=== PATIENT | female | born 1990 | race Caucasian/White ===

== ENCOUNTER 2021-08-08 11:36 | Emergency (ER) | payer MEDICAID ==
[~2021-08-08] VITALS: Ht 152.4 cm; Wt 95.3 kg
[2021-08-08 12:10] VITALS: BP_SYST 93
--- NOTE | 2021-08-08 12:18 | NUR ---
Patient to ER bed 7 to gown for evaluation. Side rails up. Report given to Jo WILKINS.
--- NOTE | 2021-08-08 12:25 | NUR ---
PT CAME IN FROM HOME C/O SORE THROAT SINCE YESTERDAY WITH SWOLLEN TONSILS. DENIES FEVERS OR CHILLS. PT IS AMBULATORY, [id number], VSS
--- NOTE | 2021-08-08 13:05 | NUR ---
ER DR. CANDELARIO AT THE BEDSIDE EXAMINING PT
[2021-08-08] MEDS ORDERED: DECADRON 4 MG TABLET PO ONE (13:15)
--- NOTE | 2021-08-08 13:30 | NUR ---
SWABS DONE AND SENT TO LAB
[2021-08-08 14:11] LABS: STREPTOCOCCUS A SCREEN (RAPID) NEGATIVE (NEGATIVE)
[2021-08-08] MEDS ORDERED: IBUP-1969 PO (14:18)
[2021-08-08 14:53] VITALS: BP_SYST 93
--- NOTE | 2021-08-08 14:54 | NUR ---
Patient given written and verbal discharge instructions and verbalizes understanding. ER MD discussed with patient the results and treatment provided. Patient in stable condition. ID arm band removed. Rx of IBUPROFEN given. Patient educated on pain management and to follow up with PMD. Pain Scale 0/10. Opportunity for questions provided and answered. Medication side effect fact sheet provided.
== END 2021-08-08 14:54 | disposition home or self-care (01) ==
LOC: SED 11:36
DX: J03.90 Acute tonsillitis, unspecified (principal); B34.9 Viral infection, unspecified; R05.9 Cough, unspecified; Z20.822 Contact with and (suspected) exposure to COVID-19
CPT/HCPCS: 36415; 86403; 87081; 87426; 87804 ×2; 99283; J8540

== ENCOUNTER 2022-05-16 20:01 | Emergency (ER) | payer MEDICAID ==
[~2022-05-16] VITALS: Ht 152.4 cm; Wt 91.6 kg
[~2022-05-16 20:01] MED LIST: IBUP-1969 PO
[2022-05-16 20:10] VITALS: BP_SYST 133
== END 2022-05-17 00:11 | disposition left against medical advice (07) ==
LOC: SED 20:01
DX: J02.9 Acute pharyngitis, unspecified (principal); R05.9 Cough, unspecified; R09.81 Nasal congestion; Z53.21 Procedure and treatment not carried out due to patient leaving prior to being seen by health care provider
CPT/HCPCS: 99281

== ENCOUNTER 2022-08-19 15:23 | Emergency (ER) | payer MEDICAID ==
[~2022-08-19] VITALS: Ht 152.4 cm; Wt 90.7 kg
[2022-08-19 15:24] VITALS: BP_SYST 114
[2022-08-19 16:25] LABS: STREPTOCOCCUS A SCREEN (RAPID) NEGATIVE (NEGATIVE)
[2022-08-19 16:29] LABS: MONOTEST NEGATIVE (NEGATIVE)
[2022-08-19] MEDS ORDERED: IBUP-1969 PO (16:36)
[2022-08-19] MEDS ORDERED: PSEU30TA36 PO (16:36)
[2022-08-19 16:40] VITALS: BP_SYST 111
== END 2022-08-19 16:40 | disposition home or self-care (01) ==
LOC: SED 15:23
DX: J02.9 Acute pharyngitis, unspecified (principal); R51.9 Headache, unspecified; Z79.899 Other long term (current) drug therapy; Z20.822 Contact with and (suspected) exposure to COVID-19
CPT/HCPCS: 36415; 86308-TC; 86403; 87081; 99283

== ENCOUNTER 2023-03-04 16:45 | Emergency (ER) | payer MEDICAID ==
[~2023-03-04] VITALS: Ht 152.4 cm; Wt 89.4 kg
[~2023-03-04 16:45] MED LIST changes: +PSEU30TA36 PO
[2023-03-04 17:16] VITALS: BP_SYST 122; PULSE 95; RESP 15; TEMP 97.7; O2SAT 98
[2023-03-04 18:00] LABS: INFLUENZA TYPE A Negative (NEGATIVE); INFLUENZA TYPE B NEGATIVE (NEGATIVE)
[2023-03-04] MEDS ORDERED: PSEU30TA36 PO (18:08)
[2023-03-04] MEDS ORDERED: DIPH25CA83 PO (18:08)
[2023-03-04 18:20] VITALS: BP_SYST 122; PULSE 95; RESP 16; TEMP 97.7; O2SAT 98
== END 2023-03-04 18:20 | disposition home or self-care (01) ==
LOC: SED 16:45
DX: J40 Bronchitis, not specified as acute or chronic (principal); R05.9 Cough, unspecified; J02.9 Acute pharyngitis, unspecified; R09.81 Nasal congestion; Z79.899 Other long term (current) drug therapy; Z20.822 Contact with and (suspected) exposure to COVID-19
CPT/HCPCS: 36415; 71045; 99284